=== PATIENT | female | born 1995 | race African-American/Black ===

== ENCOUNTER 2023-12-27 10:18 | Outpatient (AMB) | payer MEDICAID, SELFPAY ==
--- NOTE | 2023-12-27 10:33 | A.OFFVIS_ITS ---
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 Patient reports she was 14-15 years old when she first noticed this cyst on the dorsal aspect of her right wrist however in July is started giving her pain. She reports pain and weakness with lifting and pushing activities. She expresses she also has c ramping of all her fingers and she shakes her hand off or waits it out when this occurs. She was provided a topical cream for her pain but she says its not often when she does have pains, just when she pushing against things with her hand. Denies past treatment on her right wrist. 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 Patient states that her cyst has been there since she was 12 to 13 years old, but she noticed that it began giving her discomfort in July. Patient reports that since that time, she has been experiencing significant discomfort in the dorsal right wrist, as well as weakness with lifting or pushing activities. Patient reports that the cyst also has grown and shrunk in size over that time, and that it is now not currently as large as it was approximately 2-3 weeks ago. Patient denies any numbness or tingling in the right hand. No other acute complaints or concerns at this time. [facility] Social History (Updated 12/27/23 @ 10:37 by ESTRELLA Malave) Alcohol intake: never Substance Use Type: Marijuana Current occupational status: student Current occupation: Right hand dominant Review of Systems Const All systems reviewed & are unremarkable except as noted in HPI and below Physical Exam Vital Signs: BMI result Body Mass Index 39.5 Extrem Other: Patient is alert, oriented, and in no acute distress. Neuro: Normal sensation of the tips of all digits of the R hand at this time Vascular: Cap refill brisk Pain: Patient reports mild tenderness to palpation of the R wrist, about the ganglion cyst ROM: Patient is able to make a closed fist and extend all digits of the right hand without difficulty Range of motion of the right wrist is full and intact, although the patient reports discomfort with this range of motion testing Skin: No lacerations or abrasions. General: No ecchymosis, erythema, or evidence of infection. There is noted to be an area of swelling about the radial aspect of the dorsal right wrist, just next to the 1st dorsal compartment Area is fluctuant to palpation Psych: Appears grossly normal Affect normal Attitude cooperative Assessment & Plan Assessment & Plan (1) Ganglion cyst of dorsum of right wrist: Code(s): M67.431 - Ganglion, right wrist Category: Medical Plan 1. Dorsal wrist ganglion of right radial wrist Patient is educated about this condition Patient is educated about the treatment options available to her Patient is educated that, due to the location of the cyst near the 1st dorsal compartment and therefore near the radial artery, I am unable to aspirate the cyst in the office at this time due to the risk of injury to the radial artery Patient will be referred to Dr. Pettit for follow-up evaluation and discussion of treatment options indicated at that time In the meantime, patient is offered Coban to apply gentle compression to the ganglion cyst to encourage the fluid in the cyst returning into the wrist joint. Patient is amenable to this plan Patient will follow-up in 3-[address] Pettit for repeat evaluation, sooner with any acute concerns Coding Level of Care Code New Pt Level 3 (67920) Diagnoses Ganglion cyst of dorsum of right wrist M67.431
[2023-12-27 10:35] VITALS: BMI 39.5
== END 2023-12-27 11:05 | disposition home or self-care (01) ==
DX: M67.431 Ganglion, right wrist (principal)
CPT/HCPCS: 99203

== ENCOUNTER → 2023-12-27 10:18 | Outpatient (BNVA) | payer MEDICAID, SELFPAY | DX: M67.431 Ganglion, right wrist (principal) | CPT/HCPCS: 99212 ==

== ENCOUNTER 2024-01-21 09:32 | Outpatient (AMB) | payer MEDICAID, SELFPAY ==
--- NOTE | 2024-01-21 09:36 | A.OFFVIS_ITS ---
Vital Signs 01/21/24 09:38 Height 5 ft 6 in Weight 245 lb BMI 39.5 Handedness Right Intake Visit Reasons: OV- Right wrist ganglion cyst/ pain Intake Note: Macie is a 28 year old right hand dominant female who presents today for a right dorsal wrist ganglion cyst. During her initial visit patient reported she was 14-15 years old when she first noticed it however, it has been causing pain since July,. Patient reports pain and weakness with lifting and pushing activities. Patient report difficultly with gripping and squeezing when she has weakness. She reports her bilateral hands experience spasms in her 1st, 2nd, and 3rd digits. Denies any prior injuries or surgeries to the right hand. Allergies acetaminophen Allergy (Severe, Verified 01/21/24 09:38) Shortness of Breath aloe Allergy (Intermediate, Verified 01/21/24 09:38) Hives HPI HPI OV- Right wrist ganglion cyst/ pain: Details: Macie is a 28 year old right hand dominant woman who presents for a right dorsal wrist ganglion. She complains of a mass on the dorsal right wrist, which she says has been present since she was ~13. She says this has been causing her pain recently. She reports this mass changing in size several times over the years. She says it is smaller today than it was at her last appointment. She says she is hesitant to discuss surgery. She also complains of weakness in her wrist when gripping, lifting, or pushing activities. She denies any numbness or tingling. 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 [facility] Social History Alcohol intake: never Substance Use Type: Marijuana Current occupational status: student Current occupation: Right hand dominant Review of Systems Const All systems reviewed & are unremarkable except as noted in HPI and below Physical Exam Vital Signs: BMI result Body Mass Index 39.5 Const General: cooperative, healthy appearing and no acute distress Orientation/consciousness: patient oriented x3 HEENT Head: Yes normocephalic and Yes atraumatic Eyes EOM: EOMs intact bilaterally Resp Effort & Inspection: normal respiratory effort and able to speak in complete sentences Cardio Jugular venous distension: no JVD Skin General skin exam: turgor normal Rashes: no rashes Neuro General: patient oriented x3 Extrem Other: Evaluation of Right Upper Extremity: The patient is alert, oriented, and in no acute distress Neuro: Median, Ulnar, Radial nerves motor and sensory intact and sensation is normal to the tips of all digits Vascular: Cap refill brisk ROM: She can make a tight fist with good strength, and extend all her digits No locking or catching Good wrist ROM Skin: No lacerations or abrasions. General: No Ecchymosis. No Erythema or evidence of infection. There is a mass on the dorsal central aspect of the right wrist, over the capetate, measuring ~8mm in diameter. This is seen with her wrist in full flexion. Psych Appearance: grossly normal Affect: normal affect Attitude: cooperative Assessment & Plan Assessment & Plan (1) Ganglion cyst of dorsum of right wrist: Code(s): M67.431 - Ganglion, right wrist Category: Medical Plan Assessment & Plan: 1. Right dorsal wrist ganglion Measuring ~8mm in diameter, over the dorsal central aspect of the wrist, over the capitate Primarily seen in full wrist flexion. 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 She can follow up prn Scribed for Kaia Pettit MD by Azar Ramirez, medical coordinator pesticide use, on 01/21/24 at 10:10 AM, EST. Coding Level of Care Code Est Pt Level 3 (94751) Diagnoses Ganglion cyst of dorsum of right wrist M67.431
[2024-01-21 09:38] VITALS: BMI 39.5
== END 2024-01-21 10:12 | disposition home or self-care (01) ==
PROVIDERS: Visit Provider Orthopaedic Surgery
DX: M67.431 Ganglion, right wrist (principal)
CPT/HCPCS: 99213

== ENCOUNTER → 2024-01-21 09:32 | Outpatient (BNVA) | payer MEDICAID, SELFPAY | PROVIDERS: Visit Provider Orthopaedic Surgery | DX: M67.431 Ganglion, right wrist (principal); R53.1 Weakness | CPT/HCPCS: 99212 ==

== ENCOUNTER 2024-06-23 10:12 | Outpatient (REF) | payer MEDICAID, SELFPAY ==
[2024-06-23 11:14] LABS: MANUAL DIFF FLAG NO
[2024-06-23 11:32] LABS: Hematocrit 40.3 % (37.0-47.0); Imm Gran Pct Auto 0.1 % (0.0-0.4); Lymphocytes Percent Auto 36.7 % (20-40); Mean Corpuscular HGB Conc 34.7 g/dl (31.0-35.0); Mean Corpuscular Volume 86.3 fL (80.0-98.0); Mean Platelet Volume 10.7 fL (9.4-12.3); Monocytes Percent Auto 5.5 % (2-11); Neutrophils Percent Auto 55.3 % (45-73); Platelet Count 237 X10*3/uL (160-400); Red Blood Count 4.67 X10*6/uL (4.20-5.50); Red Cell Distribution Width 12.3 % (11.0-16.0); White Blood Count 6.9 X10*3/uL (4.8-10.8)
[2024-06-23 11:33] LABS: Basophils Absolute Auto 0.1 X10*3/uL (0.0-0.2); Basophils Percent Auto 0.7 % (0-2); Eosinophils Absolute Auto 0.1 X10*3/uL (0.0-0.4); Eosinophils Percent Auto 1.7 % (0-4); Imm Gran Abs Auto 0.01 X10*3/uL (0.00-0.03); Lymphocytes Absolute Auto 2.5 X10*3/uL (1.2-4.9); Monocytes Absolute Auto 0.4 X10*3/uL (0.1-1.2); Neutrophils Absolute Auto 3.8 x10*3/uL (2.0-8.3)
[2024-06-23 11:38] LABS: Estimated Average Glucose 97 mg/dL; Hemoglobin A1C 114.4178 umol/L; Total Hemoglobin (HGBA1C) 3651.7497 umol/L
[2024-06-23 12:00] LABS: HBS Num1 363.72 mIU/mL (0-7.99); HBsAGNum1 0.34 S/CO (0.00-0.99); HIV AB/AG Nonreactive (Nonreactive); HIV Num 1 0.08 S/CO (0.00-0.99); Hepatitis A Antibody IgM 0.18 Index (0-0.79); Hepatitis B Core Antibody Nonreactive (Nonreactive); Hepatitis B Surface Antigen Negative (Negative); Syphilis Screen Nonreactive (Nonreactive); ~Hepatitis A Antibody IgM Nonreactive (Nonreactive); ~Hepatitis B Surface Antibody REACTIVE (Nonreactive); ~Hepatitis C Antibody Nonreactive (Nonreactive)
[2024-06-23 12:06] LABS: Alanine Aminotransferase 20 U/L (0-31); Albumin Level 3.6 g/dL (3.5-5.0); Alkaline Phosphatase 111 U/L (39-117); Anion Gap 11 (12-20); Aspartate Amino Transferase 17 U/L (5-31); Bilirubin Total 0.3 mg/dL (0.0-1.0); Blood Urea Nitrogen 15 mg/dL (9-16); Calcium 8.8 mg/dL (8.4-10.2); Carbon Dioxide 22 mmol/L (22-29); Chloride 110 mmol/L (96-108); Cholesterol 128 mg/dL (<200); Estimated Glomerular Filt Rate > 60; Glucose Random 87 mg/dL (60-115); HDL Cholesterol 36 mg/dL (>40); LDL Cholesterol Calculated 77 mg/dL (<100); Potassium 4.3 mmol/L (3.3-5.1); Sodium 139 mmol/L (135-145); Total Protein 7.3 g/dL (6.5-8.0); Triglycerides 78 mg/dL (<150)
[2024-06-23 12:15] LABS: TSH reflex Free T4 1.15 uIU/mL (0.32-4.0); Vitamin D 25-OH Total 13.8 ng/mL (>30)
[2024-06-23 13:43] LABS: Reflex LDLD? No
== END 2024-06-23 10:13 | disposition home or self-care (01) ==
LOC: HO.HHCL 10:12
PROVIDERS: Visit Provider Internal Medicine
DX: Z11.4 Encounter for screening for human immunodeficiency virus [HIV] (principal); E66.812 Obesity, class 2; E66.09 Other obesity due to excess calories; Z68.37 Body mass index [BMI] 37.0-37.9, adult; S93.402A Sprain of unspecified ligament of left ankle, initial encounter; Z91.89 Other specified personal risk factors, not elsewhere classified
CPT/HCPCS: 36415; 80053; 80061; 82306; 83036; 84443; 85025; 86704; 86706; 86709; 86780; 86803; 87340; 87389

== ENCOUNTER 2024-07-13 11:36 | Outpatient (REF) | payer MEDICAID, SELFPAY ==
--- OUTSIDE RECORDS SUMMARY | 2024-07-14 14:15 | XMS_ITS | Encounter Summary ---
Author Organization [employer] Address [address] [place] [address] [address] [place] [address] Care Team Providers Care Fac Engineer Name Role Phone Tabitha Bateman MD Primary Care Provider + Reason for Visit * Reason Onset Date Comments Nurse Triage 07/13/2024 Encounter Details Date Type Department Care Team (Late st Contact Info) Description 07/13/2024 Telephone [facility] MED[facility]INE [address] [place] [address] Tabitha Bateman MD [address] [place], [place] [phone] Nurse Triage Social History Tobacco Use Types Packs/Day Years Used Date Smoking Tobacco: Never Smokeless Tobacco: Never Alcohol Use Standard Drinks/Week Comments Never 0 (1 standard drink = 0.6 oz pur e alcohol) Housing Stability Answer Date Recorded What is your housing situation today? I have alma underwood 06/23/[address] you li ve. Do you have problems with any of the following? None of the above 06/23/2024 Food Insecurity Answer Date Recorded Within the past 12 months, y ou worried that your food would run out before you got money to buy more: Never True 06/23/2024 Within the past 12 months,th e food you bought just didn't last and you didn't have enough money to get more: Never True Transportation Answer Date Recorded In the past 12 months, has l ack of transportation kept you from medical appts, meetings, work or from getting things needed for daily living? No 06/23/2024 Utilities Answer Date Recorded In the past 12 months, has t he electric, gas, oil or water company threatened to shut off services in your home? No 06/23/2024 Internet Access Answer Date Recorded Internet Access Q1 No 06/23/2024 Internet Access Q2 I do not want or need it 06/06 Comments No Sex and Gender Information Value Date Recorded Sex Assigned at Female 11/22/2023 12:12 PM EDT Legal Sex Female 12:10 PM EDT Gender Identity Female 11/22/2023 12:12 PM EDT Sexual Orientation Straight 11/22/2023 12 :12 PM EDT Occupation Industry Job Start Date Job End Date [employer] Not on file Not on file Not on fi le documented as of this encounter Miscellaneous Notes * Telephone Encounter - Enedelia Perez RN - 07/13/2024 12:23 PM EDT Call returned to Macie Bush to triage below. Reports having epigastric pain since Saturday. Per pt having lower abdominal pain since Saturday. Pt had loose stool on Saturday. NO urinary sx of pain , burning, or odor. No vaginal discharge. Vomiting x 1. Reports having vaginal spotting today. Per pt still has IUD in place. No regular monthly menses. Pt advised of disposition, agrees to seek WIC as currently at work until 4pm. Reviewed WIC operating hours and that wait times vary. Reviewed home care advise, ER precautions and reasons to call back. Protocol Used: Abdominal Pain - Female (Adult) Protocol-Based Disposition: See in Office or Video Visit Today Video visit offer not recorded Positive Triage Question: * Moderate pain (e.g., interferes with normal activities that comes and goes (cramps) lasts > 24hours (Exception: Pain with Vomiting or Diarrhea - see that Protocol.) * All higher-acuity triage questions were negative Care Advice Discussed: * Reassurance and Education - Mild Stomachache * Drink Clear Fluids * Reasons To Call Back - Severe pain lasts over 1 hour - You become worse * Telephone Encounter - Dottie Atkins - 07/13/2024 12:12 PM EDT Symptom: Abdominal Pain - Female - Status Unknown Outcome: Schedule an urgent appointment (within 4 hours) or talk to a nurse or provider soon Reason: Caller denied all higher acuity questions The caller accepted this outcome. Pt reported spotting Contact pt at [phone] documented in this encounter Plan of Treatment Upcoming Encounters Date Type Department Care Team ([facility] st Contact Info) Description 08/25/2024 11:45 AM EDT Telemedicine [facility] MEDICINE [address] [place] [address] [phone] Tabitha Bateman MD [address] [place] [phone] documented as of this encounter Visit Diagnoses Not on filedocumented in this encounter Care Teams Fac Engineer Relationship Specialty Start Date End Date Tabitha Bateman MD [address] [place] [address] [phone] PCP - General Internal Medicine 06/23/24 documented as of this encounter
--- OUTSIDE RECORDS SUMMARY | 2024-07-14 14:15 | XMS_ITS | Encounter Summary ---
Author Organization [employer] Address [address] [facility] [address] [place] [address] Care Team Providers Care Mica Sizer Name Role Phone Tabitha Bateman MD Primary Care Provider + Encounter Details Date Type Department Care Team (Latest Contact Info) Description 07/13/2024 Travel Social History Tobacco Use Types Packs/Day Years [...] fi le documented as of this encounter Plan of Treatment Upcoming Encounters Date Type Department Care Team (Late st Contact Info) Description 08/25/2024 11:45 AM EDT Telemedicine [facility] MEDICINE [address] [place], [place] [phone] Tabitha Bateman MD [address] [place] [phone] documented as of this encounter Visit Diagnoses Not on filedocumented in this encounter Care Teams Mica Sizer Relationship Specialty Start Date End Date Tabitha Bateman MD [address] [place] [address] [phone] PCP - General Internal Medicine 06/23/24 documented as of this encounter
--- OUTSIDE RECORDS SUMMARY | 2024-07-14 14:15 | XMS_ITS | Encounter Summary ---
Author Organization [employer] Address [address] [place] [address] [address] [place] [address] Care Team Providers Care Voip Technician Name Role Phone Tabitha Bateman MD Primary Care Provider + Reason for Referral * Imaging (Routine) - Authorized Specialty Diagnoses / Procedures Referred By Moe del castillo Referred To Contact Radiology Diagnoses Lower abdominal pain Procedures Us Pelvis complete Kiersten Beverly MD [address] [place] [address] Phone: tel: fax: [address] Phone: tel: fax: Referral ID Status Reason Start Date Expiration Date V isits Requested Visits Authorized [id number] Authorized 07/13/2024 07/13/2025 1 1 Reason for Visit * Reason Comments Abdominal Pain Encounter Details Date Type Department Care Team (Latest Contact Info) Description 07/13/2024 5:40 PM EDT Office Visit [facility] [address] [place] [phone] Kiersten Beverly MD [address] [place], [place] [phone] Gastroesophageal reflux disease without esophagitis (Primary Dx); Lower abdominal pain Social History Tobacco Use Types Packs/Day Years [...] fi le documented as of this encounter Last Filed Vital Signs Vital Sign Reading Time Taken Comments Blood Pressure 133/81 07/13/2024 5:20 PM EDT Pulse 73 07/13/2024 5:20 PM EDT Temperature 35.8 ??C (96.4 ??F) 07/13/2024 5:20 PM ED T Respiratory Rate 16 07/13/2024 5:20 PM EDT Oxygen Saturation 98% 07/13/2024 5:20 PM EDT Inhaled Oxygen Concentration - - Weight 109 kg (241 lb 3.2 oz) 07/13/2024 5:20 PM EDT Height 167.6 cm (5' 6 ) 07/13/2024 5:20 PM EDT Body Mass Index 38.93 07/13/2024 5:20 PM EDT documented in this encounter Progress Notes * Thevenin Beauzile, MD - 07/13/2024 5:40 PM EDT Subjective Patient ID: Macie Bush is a 28 y.o. female who presents for No chief complaint on file.. Abdominal Pain This is a new problem. The current episode started in the past 7 days. The onset quality is undetermined. The problem occurs constantly. The most recent episode lasted 4 days. The problem has been waxing and waning. The pain is located in the epigastric region and suprapubic region. The pain is at a severity of 6/10. The quality of the pain is cramping and a sensation of fullness. The abdominal pain radiates to the epigastric region and suprapubic region. Associated symptoms include anorexia, belching, constipation, diarrhea, flatus, myalgias, nausea and vomiting. Pertinent negatives include no arthralgias, dysuria, fever, frequency, headaches, hematochezia, hematuria, melena or weight loss. Nothing aggravates the pain. The pain is relieved by Nothing. There is no history of abdominal surgery, colon cancer, Crohn's disease, gallstones, GERD, irritable bowel syndrome, pancreatitis, PUD or ulcerative colitis. 3 days history of an epigastric pain associated with some nausea. Feels much better now during the evaluation. Main concern is her pelvic pain that started about 3 days ago associated with spotting. Patient hasa non hormonal IUD in place. No associated fever or other constitutional symptoms. Patient Active Problem List Diagnosis ASCUS with positive high risk HPV cervical Family history of breast cancer in first degree relative Gestational hypertension, third trimester History of latent tuberculosis Obesity, Class III, BMI 40-49.9 (morbid obesity) (CMS/HCC) Patellofemoral pain syndrome of right knee Rubella non-immune status, antepartum Class 2 obesity due to excess calories without serious comorbidity with body mass index (BMI) of 37.0 to 37.9 in adult Sprain of left ankle Decreased vision in both eyes At high risk for breast cancer Current Outpatient Medications on File Prior to Visit Medication Sig Dispense Refill ergocalciferol (Vitamin D2) 1.25 MG (69781 UT) capsule Take 1 capsule (1.25 mg) by mouth 1 (one) time per week. 12 capsule 1 Levonorgestrel 20 MCG/DAY intrauterine device 1 each by Intrauterine route 1 (one) time. No current facility-administered medications on file prior to visit. Review of Systems Constitutional: Negative for fever and weight loss. Gastrointestinal: Positive for abdominal pain, anorexia, constipation, diarrhea, flatus, nausea andvomiting. Negative for hematochezia and melena. Genitourinary: Negative for dysuria, frequency and hematuria. Musculoskeletal: Positive for myalgias. Negative for arthralgias. Neurological: Negative for headaches. Objective BP 133/81 (BP Location: Right arm, Patient Position: Sitting, BP Cuff Size: Large adult) Pulse 73 Temp 96.4 ??F (35.8 ??C) (Temporal) Resp 16 Ht 5' 6 (1.676 m) Wt 241 lb 3.2 oz (109 kg) LMP (LMP Unknown) SpO2 98% BMI 38.93 kg/m?? Physical Exam Constitutional: General: She is not in acute distress. Appearance: Normal appearance. She is obese. She is not ill-appearing, toxic- appearing or diaphoretic. Cardiovascular: Rate and Rhythm: Normal rate. Pulmonary: Effort: Pulmonary effort is normal. Abdominal: General: There is no distension. Palpations: Abdomen is soft. There is no mass. Tenderness: There is no abdominal tenderness. Hernia: No hernia is present. Neurological: Mental Status: She is alert. Psychiatric: Mood and Affect: Mood normal. Assessment/Plan Diagnoses and all orders for this visit: Gastroesophageal reflux disease without esophagitis Comments: Avoid dietary irritants Avoid eating 3 hours prior to bedtime Head of bed elevation. Orders: - omeprazole OTC (PriLOSEC OTC) 20 MG EC tablet; Take 1 tablet (20 mg) by mouth 2 times daily. Do not crush, chew, or split. Lower abdominal pain Comments: UA compatible with dehydration Patient advised to increase fluid intake. She only drinks maybe 16 ounces of water a day. Orders: - POCT urinalysis dipstick manually resulted - POCT , urine manually resulted - Culture, Urine, Routine; Future Ms Macie Bush will be contacted with the results of the urine culture and the result of the ultrasound of the pelvic area. - Us Pelvis complete; Future documented in this encounter Plan of Treatment Upcoming Encounters Date Type Department Care Team (Late st Contact Info) Description 08/25/2024 11:45 AM EDT Telemedicine [facility] [address] [place] [address] Tabitha Bateman MD [address] [place] [address] Scheduled Orders Name Type Priority Associated Diagnoses Orde r Schedule Culture, Urine, Routine Microbiology Routine Lower abdominal pain Expected: 07/13/2024 (Approximate), Expires: 07/13/2025 Us Pelvis complete Imaging Routine Lower abdominal pain Expected: 07/13/2024, Expires: 07/13/2025 documented as of this encounter Procedures Procedure Name Priority Date/Time Associated Diagnosis Comments POCT , URINE Routine 07/13/2024 5:51 PM EDT Lower abdominal pain POCT URINALYSIS DIPSTICK Routine 07/13/2024 5:51 PM EDT Lower abdominal pain documented in this encounter Results * POCT , urine manually resulted (07/13/2024 5:51 PM EDT) Preg Test, Ur Negative Negative, Indeterminate, None Detected, Invalid, Specimen unsatisfactory for evaluation, Weakly Positive QC Media Lot # [id number] Lot# Expiration Date [id number] Urine 07/13/2024 5:51 PM EDT Kiersten Beverly MD POINT OF CARE TEST ENTER/ED IT ORDERABLES Final Result * (ABNORMAL) POCT urinalysis dipstick manually resulted (07/13/2024 5:51 PM EDT) Color, UA Dark Cynthia Clarity, UA Clear Glucose, UA Negative Bilirubin, UA Trace Comment:small Ketones, UA Negative Spec Grav, UA 1.030 Blood, UA Positive(A) Negative, None Detected Comment:trace-intact pH, UA 6.0 Protein, UA Many Comment:30mg/dL Urobilinogen, UA 1.0 Leukocytes, UA Negative Negative, Rare, Trace Nitrite, UA Negative Negative, None Detected Appearance, UA dark QC Media Lot # [id number] Lot# Expiration Date [id number] Urine 07/13/2024 5:51 PM EDT Kiersten Beverly MD POINT OF CARE TEST ENTER/ED IT ORDERABLES Final Result documented in this encounter Visit Diagnoses Diagnosis Gastroesophageal reflux disease without esophagitis- Primary Esophageal reflux Lower abdominal pain Abdominal pain, other specified site documented in this encounter Care Teams Voip Technician Relationship Specialty Start Date End Date Tabitha Bateman MD [address] [place] [phone] PCP - General Internal Medicine 06/23/24 documented as of this encounter
--- OUTSIDE RECORDS SUMMARY | 2024-07-14 14:15 | XMS_ITS | Encounter Summary ---
Author Organization [employer] Address [address] [place] [address] [address] [place] [address] Care Team Providers Care Heavy Threader Name Role Phone Tabitha Bateman MD Primary Care Provider + Reason for Visit * Reason Onset Date Comments Durable Medical Equipment 07/10/2024 Encounter Details Date Type Department Care Team (Late st Contact Info) Description 07/10/2024 Telephone [facility] MEDICINE [address] [place], [place] [phone] Tabtiha Bateman MD [address] [place], [place] [phone] Durable Medical Equipment Social History Tobacco Use Types Packs/Day Years [...] encounter Miscellaneous Notes * Telephone Encounter - Bonnie Hogan MA - 07/10/2024 1:31 PM EDT Script for left ankle brace submitted through [employer] for processing. Supplier should contact patient. documented in this encounter Plan of Treatment Upcoming Encounters Date Type Department Care Team (Late st Contact Info) Description 08/25/2024 11:45 AM EDT Telemedicine [facility] MEDICINE [address] [place] [phone] Tabitha Bateman MD [address] [place] [phone] documented as of this encounter Visit Diagnoses Not on filedocumented in this encounter Care Teams Heavy Threader Relationship Specialty Start Date End Date Tabitha Bateman MD [address] [place] [phone] PCP - General Internal Medicine 06/23/24 documented as of this encounter
--- OUTSIDE RECORDS SUMMARY | 2024-07-14 14:15 | XMS_ITS | Clinical Summary ---
Author Organization [facility] ity Address [address] [place] [address] Care Team Providers Care Rivet Sticker Name Role Phone Audrey Magallon MD Primary Care Provider Allergies Active Allergy Reactions Criticality Noted Date Comments Acetaminophen Hives High 06/16/2019 Aloe Hives 09/25/2019 Medications levonorgestreL (MIRENA) 21 mcg/24hr (up to 8 yrs) 52 mg IUD 1 each by Intrauterine route once. Active Active Problems Problem Noted Date Diagnosed Date Patellofemoral pain syndrome of right knee 05/16 Gestational hypertension, third trimester 2019 Rubella non-immune status, antepartum 01/23/2020 Chest pain, atypical 10/21/2019 Overview (06/03/2024): CBC and CMP 09/23 WNL. Magnesium level 1.7 - borderline low. Mag supplement recommended, taking daily. S/p cardiology consult with Dr. Martinez - EKG, FRANKIE, 30 day loop recorder ordered. Due to follow up 11/09. Reviewed s/sx that warrant immediate eval Obesity, Class III, BMI 40-49.9 (morbid obesity) 10/21/2019 Overview (06/03/2024): BMI 40.03 kg/m, will need NSTs weekly at 32 weeks, patient informed/agreeable ASCUS with positive high risk HPV cervical 06/25 Overview (06/03/2024): Neg 16,18,45 Immunizations Name Administration Dates Next Due Influenza Quadravalent, MDCK , 0.5ml, preservative free (Flucelvax) 6mo and older 01/05/2020 MMR, measles mumps and rubel la Live (Priorix; M-M-R II) 12mo and older 01/25/2020 Moderna SARS-CoV-2 COVID-19, mRNA, LNP-S, preservative free 04/11/2021,08/30/2020,08/04/2020 Surgical History Surgery Date Site/Laterality Comments DILATION AND CURETTAGE OF UTERUS PROCEDURE:DILATION AND CURETTAGE OF UTERUS;COMMENT:partial molar WISDOM TOOTH EXTRACTION PROCEDURE:WISDOM TOOTH EXTRACTION Medical History Medical History Date Comments Depression DX:Depression Psychiatric disorder DX:Psychiat denise disorder Migraine DX:Migraine ASCUS with positive high ris k HPV cervical 06/26/2019 DX:ASCUS with positive high risk HPV cervical Molar DX:Molar pregnan cy Anxiety DX:Anxiety Low back pain DX:Low back pain Obesity DX:Obesity Tuberculosis DX:Tuberculosis Gestational hypertension, th ird trimester 01/23/2020 DX:Gestational hypertension, third trimester Family History Medical History Relation Name Comments Anxiety disorder Brother Depression Brother Alcohol abuse Father Hyperlipidemia Father Hypertension Father Breast cancer Great Aunt maternal Alcohol abuse Mother Anxiety disorder Mother Breast cancer Mother Depression Mother Diabetes Mother Hypertension Mother Anxiety disorder Sister 1 Depression Sister 1 Anxiety disorder Sister 2 Depression Sister 2 Relation Name Status Comments Brother Alive Father Alive Great Aunt maternal Alive Mother Sister 1 Alive Sister 2 Alive Social History Tobacco Use Types Packs/Day Years Used Date Smoking Tobacco: Never Smokeless Tobacco: Never Alcohol Use Standard Drinks/Week Comments Yes 0 (1 standard drink = 0.6 oz pur e alcohol) Comments Unknown Sex and Gender Information Value Date Recorded Sex Assigned at Not on file Legal Sex Female 3:20 AM EST Gender Identity Not on file Sexual Orientation Not on file Obstetrics History Last Filed Vital Signs Vital Sign Reading Time Taken Comments Blood Pressure 128/84 06/08/2021 10:02 AM EST Sitting Right arm Pulse 72 06/08/2021 10:02 AM EST Temperature - - Respiratory Rate - - Oxygen Saturation - - Inhaled Oxygen Concentration - - Weight 129 kg (284 lb) 06/08/2021 10:02 AM EST Height 167.6 cm (5' 6 ) 06/08/2021 10:0 2 AM EST Body Mass Index 45.84 06/08/2021 10:02 AM EST Plan of Treatment Health Maintenance Due Date Last Done Comments DTaP,Tdap,and Td Vaccines (1 - Tdap) 2012 Hepatitis B Vaccines (1 of 3 - 19+ 3-dose series) 2012 Depression Screening 03/11/2022 Social Influencers of Health Screening 03/11/2022 Hypertension/CHF/CAD Annual BMP Blood Test 06/08/2022 06/08/2021, 06/08/2021, 01/28/2021, Additional history exists COVID-19 Vaccine ( season) 2023 04/11/2021, 08/30/2020, 08/04/2020 Influenza Vaccine (Season Ended) 2024 01/05/2020 Cervical Cancer Screening: HPV 03/25/2025 03/25/2020 Cholesterol Screening (Lipid Panel) 06/08/2026 06/08/2021, 06/08/2021 Hepatitis C Screening Completed 06/30/2019 HIV Screening Completed 10/26/2019 MMR Vaccines Aged Out 01/25/2020 No longer eligi ble based on patient's age to complete this topic HIB Vaccines Aged Out No longer eligi ble based on patient's age to complete this topic HPV Vaccines Aged Out No longer eligi ble based on patient's age to complete this topic Hepatitis A Vaccines Aged Out No long er eligible based on patient's age to complete this topic IPV Vaccines Aged Out No longer eligi ble based on patient's age to complete this topic Meningococcal ACWY Vaccine Aged Out N o longer eligible based on patient's age to complete this topic Meningococcal B Vaccine Aged Out No l onger eligible based on patient's age to complete this topic Pneumococcal Vaccine: Pediatrics (0 to 5 Years) and At-Risk Patients (6 to 64 Years) Aged Out No longer eligible based on patient's age to complete this topic RSV Immunization Patients Under 20 months Aged Out No longer eligible based on patient's age to complete this topic Varicella Vaccines Aged Out No longer eligible based on patient's age to complete this topic Procedures Procedure Name Priority Date/Time Associated Diagnosis Comments ANNUAL BMP BLOOD TEST Routine 06/08/2021 LIPID PANEL Routine 06/08/2021 HPV Routine 03/25/2020 HIV SCREENING Routine 10/26/2019 HEPATITIS C SCREENING Routine 06/30/2019 from Last 3 Months or Most Recently Relevant to Health Maintenance Results * Annual BMP Blood Test (06/08/2021) Pathologist [facility] Annual BMP Blood Test Abstracted [facility] Provider HEALTH MAINTENANCE Final Result * (ABNORMAL) Lipid panel (06/08/2021) [facility] Triglycerides 208(A) <=150 mg/dL Cholesterol 123 0 - 200 mg/dL HDL 28(A) 35 - 80 mg/dL LDL Cholesterol 53 50 - 130 mg/dL Blood Venous blood specimen / Unknown [facility] Provider LAB BLOOD ORDERABLES Purvi l Result * Cervical Cancer Screening: HPV (03/25/2020) [facility] Cervical Cancer Screening: HPV Negative, Abstracted [facility] Provider HEALTH MAINTENANCE Final Result * HIV Screening (10/26/2019) [facility] HIV Screening Abstracted [facility] Provider HEALTH MAINTENANCE Final Result * Hepatitis C Screening (06/30/2019) [facility] Hepatitis C Screening Abstracted [facility] Provider HEALTH MAINTENANCE Final Result from Last 3 Months or Most Recently Relevant to Health Maintenance Care Teams Rivet Sticker Relationship Specialty Start Date End Date Audrey Magallon MD [address] [place] [address] PCP - General Internal Medicine 05/09/21
--- OUTSIDE RECORDS SUMMARY | 2024-07-14 14:15 | XMS_ITS | Clinical Summary ---
Author Organization [facility] Address [address] [place] [address] Care Team Providers Care Heel Gummer Name Role Phone Audrey Magallon MD Primary Care Provider Unav ailable Allergies Active Allergy Reactions Criticality Noted Date Comments Aloe Hives 09/25/2019 Acetaminophen Hives High 06/16/2019 Medications Medication Sig Dispensed Refills Start Date End Date Status levonorgestrel (Mirena, 52 MG,) 20 MCG/24HR IUD 1 each by Intrauterine route once. 0 Active Active Problems Problem Noted Date Diagnosed Date Patellofemoral pain syndrome of right knee 05/16 Gestational hypertension, third trimester 2019 Rubella non-immune status, antepartum 01/23/2020 Obesity, Class III, BMI 40-49.9 (morbid obesity) 10/21/2019 Overview: BMI 40.03 kg/m, will need NSTs weekly at 32 weeks, patient informed/agreeable Chest pain, atypical 10/21/2019 Overview: CBC and CMP 09/23 WNL. Magnesium level 1.7 - borderline low. Mag supplement recommended, taking daily. S/p cardiology consult with Dr. Martinez - EKG, FRANKIE, 30 day loop recorder ordered. Due to follow up 11/09. Reviewed s/sx that warrant immediate eval Family history of breast cancer in first degree relative 10/21/2019 Overview: mother dx in ealry 30s, GM and maternal great aunt in early 50s, unsure if genetic testing done. Consider referral to genetics and further discussion about screening mammos PP per previous d/w Dr. Garcia History of latent tuberculosis 10/21/2019 ASCUS with positive high risk HPV cervical 06/25 Overview: Neg 16,18,45 Resolved Problems Problem Noted Date Diagnosed Date Resolved Date Third trimester 01/22/2020 Decreased movements in second trimester 11/22/19 20 01/23/2020 Asthma affecting i n second trimester 10/21/2019 02/12/2020 Immunizations Name Administration Dates Next Due Covid-19 (Moderna 12+) 100mcg/0.5mL dosage 04/11,08/30/2020,08/04/2020 Influenza Quad (Flucelvax) 0 .5mL >6mon (ccIIV4) 01/05/2020 MMR 01/25/2020 Family History Medical History Relation Name Comments [...] drink = 0.6 oz pur e alcohol) socially Sex and Gender Information Value Date Recorded Sex Assigned at Female 06/16/2019 3:27 PM EDT Gender Identity Female 06/16/2019 3:27 PM EDT Sexual Orientation Straight 01/14/2020 8: 38 AM EDT Job Start Date Occupation Industry Not on file Not on file Not on file Last Filed Vital Signs Vital Sign Reading Time Taken Comments Blood Pressure 128/84 06/08/2021 10:02 AM EST Pulse 72 06/08/2021 10:02 AM EST Temperature 36.6 ??C (97.9 ??F) 06/08/2021 10:[address] Respiratory Rate 18 01/28/2021 5:23 PM EDT Oxygen Saturation 98% 06/08/2021 10:02 AM EST Inhaled Oxygen Concentration - - Weight 128.8 kg (284 lb) 06/08/2021 10:02 AM EST Height 167.6 cm (5' 6 ) 06/08/2021 10:02 AM EST Body Mass Index 45.84 06/08/2021 10:02 AM EST Plan of Treatment Health Maintenance Due Date Last Done Comments Hepatitis B Vaccines (1 of 3 - 3-dose series) 1993 Pneumococcal Vaccine (1 of 2 - PCV) 10/28/1999 DTap / Tdap / Td (1 - Tdap) 2012 Depression Screening 05/09/2022 05/09/2021 BMI Counseling 06/08/2022 06/08/2021, 11/2021, 05/09/2021, Additional history exists Preventative Health Evaluation 06/08/2022 06/08/2021, 06/16/2019 Cervical Cancer Screening (Pap Smear) 03/11/2023 03/11/2020, 06/16/2019 COVID-19 Vaccine ( season) 2023 04/11/2021, 08/30/2020, 08/04/2020 Influenza Vaccine (#1) 2023 01/05/2020 Hepatitis C Screening Completed 06/30/2019 RSV Ped < 20 months Aged Out No longe r eligible based on patient's age to complete this topic Advance Directives For more information, please contact: [phone] Latest Code Status on File Code Status Date Activated Date Inactivated Comments Full Code 01/22/2020 2:46 PM 01/25/2020 10:10 PM Th is code status was ascertained in the following way: discussion with patient . Care Teams Heel Gummer Relationship Specialty Start Date End Date Audrey Magallon MD PCP - General Internal Medicine 05/09/21
--- OUTSIDE RECORDS SUMMARY | 2024-07-14 14:15 | XMS_ITS | Clinical Summary ---
Author Organization [facility] Address [address] [place] [address] 7[address] [place] [address] Care Team Providers Care Manufacturing Advisor Name Role Phone Tabitha Bateman MD Primary Care Provider + Allergies Active Allergy Reactions Criticality Noted Date Comments Acetaminophen Hives High 06/16/2019 Aloe Hives 09/25/2019 Medications Levonorgestrel 20 MCG/DAY intrauterine device 1 each by Intrauterine route 1 (one) time. Active ergocalciferol (Vitamin D2) 1.25 MG (74543 UT) capsule Take 1 capsule (1.25 mg) by mouth 1 (one) time per week. 12 capsule 1 06/24/19 25 025 Active omeprazole OTC (PriLOSEC OTC) 20 MG EC tabletIndication s:Gastroesophage al reflux disease without esophagitis Take 1 tablet (20 mg) by mouth 2 times daily. Do not crush, chew, or split. 30 tablet 1 07/14/19 25 026 Active valACYclovir (Valtrex) 1 g tablet Take 1,000 mg by mouth 2 times daily. 04/17/19 24 025 Discontin ued(Thera py completed ) Diclofenac Sodium 1 % gelIndications:G anglion cyst of dorsum of right wrist Apply topically to affected areas twice daily 150 g 1 11/22/19 24 025 Discontin ued(Thera py completed ) Active Problems Problem Noted Date Diagnosed Date Class 2 obesity due to exces s calories without serious comorbidity with body mass index (BMI) of 37.0 to 37.9 in adult 06/23/2024 Sprain of left ankle 06/23/2024 Assessment & Plan (06/23/2024 12:56 PM EDT): Advised to wear ankle brace and fu in 4 weeks. Decreased vision in both eyes 06/23/2024 Assessment & Plan (06/23/2024 12:56 PM EDT): Refer to eye doctor. At high risk for breast cancer 06/23/2024 Assessment & Plan (06/23/2024 1:17 PM EDT): Order mammogram Patellofemoral pain syndrome of right knee 05/16 Gestational hypertension, third trimester 2019 Rubella non-immune status, antepartum 01/23/2020 Family history of breast cancer in first degree relative 10/21/2019 Overview (11/22/2023): mother dx in ealry 30s, GM and maternal great aunt in early 50s, unsure if genetic testing done. Consider referral to genetics and further discussion about screening mammos PP per previous d/w Dr. Garcia Assessment & Plan (06/23/2024 12:55 PM EDT): Will order mammogram today. History of latent tuberculosis 10/21/2019 Assessment & Plan (06/23/2024 12:55 PM EDT): Will order chest XR prn. Obesity, Class III, BMI 40-49.9 (morbid obesity) 10/21/2019 Overview (11/22/2023): BMI 40.03 kg/m, will need NSTs weekly at 32 weeks, patient informed/agreeable ASCUS with positive high risk HPV cervical 06/25 Overview (11/22/2023): Neg 16,18,45 Assessment & Plan (06/23/2024 12:55 PM EDT): Will obtain pap smear from tapestry and fu at next visit. Encounters Date Type Department Care Team Description 07/13/2024 5:40 PM EDT Office Visit [facility] [address] [place] [phone] Kiersten Beverly MD Gastroesophageal reflux disease without esophagitis (Primary Dx); Lower abdominal pain 07/13/2024 Travel 07/13/[address] [phone] Tabitha Bateman MD Nurse Triage 07/10/[address] [address] Tabitha Bateman MD Durable Medical Equipment 06/30/[address] [phone] Tabtiha Bateman MD Durable Medical Equipment 06/23/2024 9:15 AM EDT Office Visit [address] [phone] Tabitha Bateman MD Class 2 obesity due to excess calories without serious comorbidity with body mass index (BMI) of 37.0 to 37.9 in adult (Primary Dx); At high risk for breast cancer; Sprain of left ankle, unspecified ligament, initial encounter; ASCUS with positive high risk HPV cervical; History of latent tuberculosis; Family history of breast cancer in first degree relative; Decreased vision in both eyes; Obesity, Class III, BMI 40-49.9 (morbid obesity) (CMS/[facility]); Dietary counseling; Exercise counseling 06/23/2024 Travel 06/19/2024 Population Health Risk [facility] () Department [address] [place] [phone] Provider, Population Health Generic 06/16/2024 Patient Outreach [address] [address] Tabitha Bateman MD Pre-visit Planning ((Unable to reach for PVP screening, LVM)) from Last 3 Months Immunizations Name Administration Dates Next Due Influenza Injectable Quadriv alant Preservative Free IIV4 MDCK 01/05/2020 Influenza, seasonal, injecta ble, preservative free 03/16/2024 MMR 01/25/2020 Moderna Covid-19 Vaccine 12+ 04/11/2021,08/31/19 21,08/04/2020 Tdap 03/16/2024 Family History Medical History Relation Name Comments Breast cancer Maternal Grandmother Breast cancer Mother Hyperthyroidism Sister Relation Name Status Comments Maternal Grandmother Mother Sister Social History Tobacco Use Types Packs/Day Years Used Date Smoking Tobacco: Never Smokeless Tobacco: Never Tobacco Cessation:Counseling Given: Not Answered Alcohol Use Standard Drinks/Week Comments Never 0 (1 standard drink = 0.6 oz pur e alcohol) Housing Stability Answer Date Recorded What is your housing situation today? I have alma yasmine 06/23/[address] you li [...] Not on file Not on fi le Last Filed Vital Signs Vital Sign Reading [...] Mass Index 38.93 07/13/2024 5:20 PM EDT Plan of Treatment Upcoming Encounters Date Type Department Care Team (Late st Contact Info) Description 08/25/2024 11:45 AM EDT Telemedicine [facility] [address] [place] [address] Tabitha Bateman MD [address] [place], [place] [phone] Health Maintenance Due Date Last Done Comments Depression Screening 1993 Alcohol/Substance Use Screening 2005 Family Planning (PISQ) 2008 Hepatitis B Vaccines (1 of 3 - 19+ 3-dose series) 2012 Pneumococcal Vaccine: Pediatrics (0 to 5 Years) and At-Risk Patients (6 to 49) Years) (1 of 2 - PCV) 2012 Pap Smear 2014 Cervical Cancer Screening 10/28/2023 HPV/Cotest 10/28/2023 COVID-19 Vaccine (4 - 2023-2 5 season) 2023 04/11/2021, 08/30/2020, 08/04/2020 SDOH Screening 06/23/2025 06/23/2024 Tobacco Screening 07/13/2025 07/13/2024 Lipid Panel 06/23/2029 06/23/2024 DTaP/Tdap/Td Vaccines (2 - T d or Tdap) 03/16/2034 03/16/2024 Zoster Vaccines (1 of 2) 10/28/2043 RSV Patients and Patients Aged 60 years or older (1 - 1-dose 75+ series) 2068 Influenza Vaccine Completed 03/16/2024, 01/05/2020 HIV Screening Completed 06/23/2024 Hepatitis C Screening Completed 06/23/2024 HIB Vaccines Aged Out No longer eligi [...] patient's age to complete this topic Meningococcal Vaccine Aged Out No don lilli eligible based on patient's age to complete this topic RSV under 20 months Aged Out No longe r eligible based on patient's age to complete this topic Rotavirus Vaccines Aged Out No longer eligible based on patient's age to complete this topic Procedures Procedure Name Priority Date/Time Associated Diagnosis Comments POCT , URINE Routine 07/13/2024 5:51 PM EDT Lower abdominal pain POCT URINALYSIS DIPSTICK Routine 07/13/2024 5:51 PM EDT Lower abdominal pain HEMOGLOBIN A1C Routine 06/23/2024 10:14 AM EDT Class 2 obesity due to excess calories without serious comorbidity with body mass index (BMI) of 37.0 to 37.9 in adult HEPATITIS PANEL, GENERAL Routine 06/23/2024 10:14 AM EDT Class 2 obesity due to excess calories without serious comorbidity with body mass index (BMI) of 37.0 to 37.9 in adult HIV 1/2 ANTIGEN/ANTIBODY, FOURTH GENERATION W/RFL Routine 06/23/2024 10:14 AM EDT At high risk for breast cancer SYPHILIS SCREEN Routine 06/23/2024 10:14 AM EDT Class 2 obesity due to excess calories without serious comorbidity with body mass index (BMI) of 37.0 to 37.9 in adult CBC WITH AUTO DIFFERENTIAL Routine 06/23/2024 10:14 AM EDT Sprain of left ankle, unspecified ligament, initial encounter LIPID PANEL WITH REFLEX TO DIRECT LDL Routine 06/23/2024 10:14 AM EDT Class 2 obesity due to excess calories without serious comorbidity with body mass index (BMI) of 37.0 to 37.9 in adult VITAMIN D,25-OH,TOTAL,IA Routine 06/23/2024 10:14 AM EDT Sprain of left ankle, unspecified ligament, initial encounter Class 2 obesity due to excess calories without serious comorbidity with body mass index (BMI) of 37.0 to 37.9 in adult TSH W/REFLEX TO FT4 Routine 06/23/2024 1 0:14 AM EDT Class 2 obesity due to excess calories without serious comorbidity with body mass index (BMI) of 37.0 to 37.9 in adult COMPREHENSIVE METABOLIC PANEL Routine 06/23/2024 10:14 AM EDT Class 2 obesity due to excess calories without serious comorbidity with body mass index (BMI) of 37.0 to 37.9 in adult from Last 3 Months Results * POCT , urine manually resulted (07/13/2024 5:51 PM EDT) Preg Test, Ur Negative Negative, Indeterminate, None Detected, Invalid, Specimen unsatisfactory for evaluation, Weakly Positive QC Media Lot # [id number] Lot# Expiration Date ,505 Urine 07/13/2024 5:51 PM EDT Kiersten Beverly [...] Media Lot # [id number] Lot# Expiration Date [id number] Urine 07/13/2024 5:51 PM EDT us Kiersten Beverly MD POINT OF CARE TEST ENTER/ED IT ORDERABLES Final Result * Syphilis Screen (06/23/2024 10:14 AM EDT) Syphilis Screen Nonreactive Nonreactive [facility] Blood 06/23/2024 10:1 4 AM EDT 06/23/2024 11:09 AM EDT Tabitha Bateman MD LAB BLOOD ORDERABLES Fin al Result [facility] [address] [place] [phone] * (ABNORMAL) Vitamin D, 25-Hydroxy, Total, Immunoassay (06/23/2024 10:14 AM EDT) Vitamin D 25-OH Total 13.8(L) >30 ng/mL [facility] Comment: Health Based Reference Values*< 20 ??ng/mL ??Reydzwads85-96 ng/mL ??Insufficient> 30 ??ng/mL ??Sufficient*Linda BETHEA. N Engl J Med. 2007;357:266-280There is no well-established upper level of normal vitamin Dlevels. Some laboratories use 50 ng/mL as an upper limit ofnormal. However, toxicity is patient-dependent and may occurat any level. Careful correlation with the patient'spresentation is necessary and, if there is concern forvitamin D toxicity, treatment should be consideredirrespective of the serum level.Care must be taken in interpreting Vitamin D results fromdifferent laboratories and methodologies. ??Published datademonstrated that results from patients undergoinghemodialysis may show a negative bias when tested withvarious automated 25-OH vitamin D assays when compared toLC- MS/MS.When testing samples from patients whose predominant form ofVitamin D is Vitamin D2, such as patients receiving VitaminD2 supplementation, results that are subtherapeutic shouldbe confirmed with another method such as LC-MS/MS. Blood 06/23/2024 10:1 4 AM EDT 06/23/2024 11:09 AM EDT Tabitha Bateman MD LAB BLOOD ORDERABLES Fin al Result Performing Organization Address City/[facility]/ZIP Co de Phone Number [facility] [address] [place] [phone] * TSH with Reflex to Free T4 (06/23/2024 10:14 AM EDT) TSH reflex Free T4 1.15 0.32 - 4.0 uIU/mL [facility] Blood 06/23/2024 10:1 4 AM EDT 06/23/2024 11:09 AM EDT us Tabitha Bateman MD LAB BLOOD ORDERABLES Fin al Result Performing Organization Address [facility] Co de Phone Number [facility] [address] [place] [phone] * (ABNORMAL) Lipid Panel with Reflex to Direct LDL (06/23/2024 10:14 AM EDT) Triglycerides 78 <150 mg/dL [facility] Comment:Desirable Triglyceri de: less than 150 mg/dLBorderline High Triglyceride 150-199 mg/dLHigh Triglyceride: 200-499 mg/dLVery High Triglyceride: greater than or equal to 5OO mg/dL Cholesterol 128 <200 mg/dL [facility] Comment:Desirable Cholestero l: less than 200 mg/dLBorderline High Cholesterol: 200-239 mg/dLHigh Cholesterol: greater than 239 mg/dL LDL Cholesterol Calculated 77 <100 mg/dL [facility] Comment:Desirable LDL: less than 100 mg/dLNear Optimal/Above Optimal LDL: 110- 129 mg/dLBorderline High LDL: 130-159 mg/dLHigh LDL: 160-189 mg/dLVery High LDL: greater than or equal to 190 mg/dL HDL Cholesterol 36(L) >40 mg/dL [facility] Comment:Desirable HDL: great er than 40 mg/dL Note: This HDL assay may give artificially low results in patients with liver disease. Blood 06/23/2024 10:1 4 AM EDT 06/23/2024 11:09 AM EDT Tabitha Bateman MD LAB BLOOD ORDERABLES Fin al Result [facility] [address] [place] [address] [phone] * Hepatitis Panel, General (06/23/2024 10:14 AM EDT) Hepatitis A IgM Nonreactive Nonreactive [facility] Comment:IgM antibodies to LEON V not detected; does not exclude earlyacute or recovered HAV infection. ~Hepatitis B Surface Antibody REACTIVE Nonreactive [facility] Comment:REACTIVE: > 11.99 mI U/mL Hepatitis B Core Antibody Nonreactive Nonreactive [facility] Hepatitis C Antibody Nonreactive Nonreactive [facility] Comment:Antibodies to HCV no t detected; does not exclude early acuteHCV infection. Hepatitis B Surface Ag Negative Negative [facility] Blood 06/23/2024 10:1 4 AM EDT 06/23/2024 11:09 AM EDT Tabitha Bateman MD LAB BLOOD ORDERABLES Fin al Result Performing Organization Address [facility]/ZIP Co de Phone Number [facility] [address] [place] [phone] * CBC auto differential (06/23/2024 10:14 AM EDT) White Blood Count 6.9 4.8 - 10.8 X10*3/uL [facility] Red Blood Count 4.67 4.20 - 5.50 X10*6/uL [facility] Hemoglobin 14.0 12.0 - 16.0 g/dl [facility] Hematocrit 40.3 37.0 - 47.0 % [facility] Mean Corpuscular Volume 86.3 80.0 - 98.0 fL [facility] Mean Corpuscular Hemoglobin 30.0 27.0 - 33.0 pg [facility] Mean Corpuscular HGB Conc 34.7 31.0 - 35.0 g/dl [facility] Red Cell Distribution Width 12.3 11.0 - 16.0 % [facility] Platelet Count 237 160 - 400 X10*3/uL [facility] Mean Platelet Volume 10.7 9.4 - 12.3 fL [facility] Neutrophils Percent Auto 55.3 45 - 73 % [facility] Imm Gran Pct Auto 0.1 0.0 - 0.4 % [facility] Lymphocytes Percent Auto 36.7 20 - 40 % [facility] Monocytes Percent Auto 5.5 2 - 11 % [facility] Eosinophils Percent Auto 1.7 0 - 4 % [facility] Basophils Percent Auto 0.7 0 - 2 % [facility] NRBC Pct Auto 0.0 0.0 - 0.2 /100WBC [facility] Neutrophils Absolute Auto 3.8 2.0 - 8.3 x10*3/uL [facility] Imm Gran Abs Auto 0.01 0.00 - 0.03 X10*3/uL [facility] Lymphocytes Absolute Auto 2.5 1.2 - 4.9 X10*3/uL [facility] Monocytes Absolute Auto 0.4 0.1 - 1.2 X10*3/uL [facility] Eosinophils Absolute Auto 0.1 0.0 - 0.4 X10*3/uL [facility] Basophils Absolute Auto 0.1 0.0 - 0.2 X10*3/uL [facility] NRBC Abs Auto 0.000 0.0 - 0.012 X10*3/uL [facility] Blood Venous blood specimen / Unknown 06/23/2024 10:14 AM EDT 06/23/2024 11:09 AM EDT Tabitha Bateman MD LAB BLOOD ORDERABLES Fin al Result Performing Organization Address [facility] Co de Phone Number [facility] [address] [place] [phone] * HIV-1/2 Antigen and Antibodies, Fourth Generation, with Reflexes (06/23/2024 10:14 AM EDT) HIV AB/AG Nonreactive Nonreactive [facility] Comment:HIV-1 p24 Ag and/or HIV-1/HIV-2 Ab not detected.A test result that is nonreactive does not exclude thepossibility of exposure to or infection with HIV-1 and/orHIV-2. Nonreactive results in this assay for individualswith prior exposure to HIV-1 and/or HIV-2 may be due toantigen and antibody levels that are below the limit ofdetection of this assay.The [employer] HIV Ag/Ab Combo assay result andsupplemental assay results should be interpreted inconjunction with the patient's clinical presentation,history and other laboratory results. If the results areinconsistent with clinical evidence, additional testing issuggested to confirm the result. Blood Venous blood specimen / Unknown 06/23/2024 10:14 AM EDT 06/23/2024 11:09 AM EDT us Tabitha Bateman MD LAB BLOOD ORDERABLES Fin al Result Performing Organization Address [facility] Co de Phone Number [facility] [address] [place] [phone] * Hemoglobin A1c (06/23/2024 10:14 AM EDT) Hemoglobin A1c 5.0 <6.0 % [facility] Comment:Hemoglobin A1C Refer ence Range Adults: 4.8 - 6.0 % Non diabetic: < 6.0 % Goal: < 7.0 %Additional Action Suggested: > 8.0 %Note: Hemoglobin A1c results are invalid for patients with abnormal amounts of HbF. Blood transfusions may impact the HbA1c concentration in the patient sample. Estimated Average Glucose 97 mg/dL [facility] Comment:eAG = Estimated ave rage glucose which is %A1C expressed asaverage glucose, using the formula of the R0H-UcjmcpkCynngll Glucose study (ADAG), Diabetes Care, Vol.31,#8,Nov. 2007 Blood Venous blood specimen / Unknown 06/23/2024 10:14 AM EDT 06/23/2024 11:09 AM EDT us Tabitha Bateman MD LAB BLOOD ORDERABLES Fin al Result [facility] [address] [place], [place] [phone] * (ABNORMAL) Comprehensive Metabolic Panel (06/23/2024 10:14 AM EDT) Sodium 139 135 - 145 mmol/L [facility] Potassium 4.3 3.3 - 5.1 mmol/L [facility] Chloride 110(H) 96 - 108 mmol/L [facility] Carbon Dioxide 22 22 - 29 mmol/L [facility] Anion Gap 11(L) 12 - 20 [facility] Urea Nitrogen (BUN) 15 9 - 16 mg/dL [facility] Creatinine, Serum 0.66 0.5 - 1.4 mg/dL [facility] Estimated Glomerular Filt Rate >60 [facility] Comment:Chronic Kidney Disea se: Estimated GFR < 60 mL/min/[id number] Kidney Disease: Estimated GFR < 15 mL/min/1.73m2 Glucose 87 60 - 115 mg/dL [facility] Calcium 8.8 8.4 - 10.2 mg/dL [facility] Bilirubin, Total 0.3 0.0 - 1.0 mg/dL [facility] Aspartate Amino Transferase 17 5 - 31 U/L [facility] Alanine Aminotransferase 20 0 - 31 U/L [facility] Total Protein 7.3 6.5 - 8.0 g/dL [facility] Albumin Level 3.6 3.5 - 5.0 g/dL [facility] Alkaline Phosphatase 111 39 - 117 U/L [facility] Blood Venous blood specimen / Unknown 06/23/2024 10:14 AM EDT 06/23/2024 11:09 AM EDT Tabitha Bateman MD LAB BLOOD ORDERABLES Fin al Result [facility] [address] [place] [phone] from Last 3 Months Insurance C3 Care Teams Manufacturing Advisor Relationship Specialty Start Date End Date Tabitha Bateman MD [address] [place] [phone] PCP - General Internal Medicine 06/23/24
== END 2024-07-13 11:37 | disposition home or self-care (01) ==
LOC: HO.HHCLNP 11:36
PROVIDERS: Visit Provider Internal Medicine
DX: R10.30 Lower abdominal pain, unspecified (principal)
CPT/HCPCS: 87086

== ENCOUNTER 2024-07-17 15:52 | Outpatient (REF) | payer MEDICAID, SELFPAY ==
--- OUTSIDE RECORDS SUMMARY | 2024-07-17 15:55 | XMS_ITS | Clinical Summary ---
Author Organization [employer] Address [address] [place] [address] 7t [place] [address] Care Team Providers Care Translator Name Role Phone Tabitha Bateman MD Primary Care Provider + Allergies Active Allergy Reactions Criticality Noted Date Comments Acetaminophen Hives High 06/16/2019 Aloe Hives 09/25/2019 Medications Levonorgestrel 20 MCG/DAY intrauterine device 1 each by Intrauterine route 1 (one) time. Active ergocalciferol (Vitamin D2) 1.25 MG (84818 UT) capsule Take 1 capsule (1.25 mg) [...] Encounters Date Type Department Care Team Description 07/15/2024 Orders Only [facility] MED & PEDS [address] [place] [address] Kiersten Beverly MD Microscopic hematuria (Primary Dx) 07/13/2024 5:40 PM EDT Office Visit [facility] [address] [place] [phone] Kiersten Beverly MD Gastroesophageal reflux disease without esophagitis (Primary Dx); Lower abdominal pain 07/13/2024 Travel 07/13/[address] [address] Tabitha Bateman MD Nurse Triage 07/10/[address] [address] Tabitha Bateman MD Durable Medical Equipment 06/30/[address] [address] Tabitha Bateman MD Durable Medical Equipment 06/23/2024 9:15 AM EDT Office Visit [address] [address] Tabitha Bateman MD Class 2 obesity due [...] Obesity, Class III, BMI 40-49.9 (morbid obesity) (CMS/FORMERLY [facility]); Dietary counseling; Exercise counseling 06/23/2024 Travel 06/19/2024 Population Health Risk Score [facility] () Department [address] [place] [phone] Provider, Population Health Generic 06/16/2024 Patient Outreach [address] [phone] Tabitha Bateman MD Pre-visit Planning ((Unable to [...] the past 12 months, has t he 25eight, gas, oil or water iLike threatened to shut off services in your [...] Info) Description 08/25/2024 11:45 AM EDT Telemedicine [facility] MEDICINE [address] [place], [place] [phone] Tabitha Bateman MD [address] [place] [address] Health Maintenance Due Date Last Done Comments Depression Screening 1993 Alcohol/Substance Use Screening 2005 Family Planning (PISQ) 2008 Hepatitis B Vaccines (1 of 3 - 19+ 3-dose series) 2012 Pneumococcal Vaccine: Pediatrics (0 to 5 Years) and At-Risk Patients (6 to 49) Years) (1 of 2 - PCV) 2012 Pap Smear 2014 Cervical Cancer Screening 10/28/2023 HPV/Cotest 10/28/2023 COVID-19 Vaccine ( - 2023-2 5 season) 2023 04/11/2021, 08/30/2020, [...] Procedure Name Priority Date/Time Associated Diagnosis Comments CULTURE, URINE, ROUTINE Routine 07/13/2024 7:26 PM EDT Lower abdominal pain POCT , URINE Routine 07/13/2024 5:51 PM [...] adult from Last 3 Months Results * Culture, Urine, Routine (07/13/2024 7:26 PM EDT) Urine Urine specimen obtained by clean catch procedure / Unknown 07/13/2024 7:26 PM EDT 07/14/2024 11:38 AM EDT Comment:[facility] - 07/15/2024 11:29 AM EDT Urine Culture No growth. Specimen Source: Urine clean catch us Kiersten Beverly MD LAB MICROBIOLOGY - GENERAL ORDERABLES Final Result [facility] [address] [place] [phone] * POCT , urine manually resulted (07/13/2024 5:51 PM EDT) Preg Test, Ur Negative Negative, Indeterminate, None Detected, Invalid, Specimen unsatisfactory for evaluation, Weakly Positive QC Media Lot # [id number] Lot# Expiration Date ,026 Urine 07/13/2024 5:51 PM EDT us Kiersten [...] Media Lot # [id number] Lot# Expiration Date ,026 Urine 07/13/2024 5:51 PM EDT us Kiersten Beverly MD POINT OF CARE TEST ENTER/ED IT ORDERABLES Final Result * Syphilis Screen (06/23/2024 10:14 AM EDT) Syphilis Screen Nonreactive Nonreactive [facility] Blood 06/23/2024 10:1 4 AM EDT 06/23/2024 11:09 AM EDT us Tabitha Bateman MD LAB BLOOD ORDERABLES Fin al Result [facility] [address] [place] [phone] * (ABNORMAL) Vitamin D, 25-Hydroxy, Total, Immunoassay (06/23/2024 10:14 AM EDT) Vitamin D 25-OH Total 13.8(L) >30 ng/mL [facility] Comment: Health Based Reference Values*< 20 ??ng/mL ??Qapvktngr06-75 ng/mL ??Insufficient> 30 ??ng/mL ??Sufficient*Linda BETHEA. N [...] MD LAB BLOOD ORDERABLES Fin al Result [facility] [address] [place] [phone] * TSH with Reflex to Free T4 (06/23/2024 10:14 AM EDT) TSH reflex Free T4 1.15 0.32 - 4.0 uIU/mL [facility] Blood 06/23/2024 10:1 4 AM EDT 06/23/2024 11:09 AM EDT Tabitha Bateman MD LAB BLOOD ORDERABLES Fin al Result Performing Organization Address [facility] de Phone Number [facility] [address] [place] [address] [phone] * (ABNORMAL) Lipid Panel with Reflex to Direct LDL (06/23/2024 10:14 AM EDT) Triglycerides 78 <150 mg/dL [facility] Comment:Desirable Triglyceri de: less than 150 mg/dLBorderline High Triglyceride 150-199 mg/dLHigh Triglyceride: 200-499 mg/dLVery High Triglyceride: greater than or equal to 5OO mg/dL Cholesterol 128 <200 mg/dL [facility] Comment:Desirable Cholestero l: less than 200 mg/dLBorderline High Cholesterol: 200-239 mg/dLHigh Cholesterol: greater than 239 mg/dL LDL Cholesterol Calculated 77 <100 mg/dL [facility] Comment:Desirable LDL: less than 100 mg/dLNear Optimal/Above Optimal LDL: 110- 129 mg/dLBorderline High LDL: 130-159 mg/dLHigh LDL: 160-189 mg/dLVery High LDL: greater than or equal to 190 mg/dL HDL Cholesterol 36(L) >40 mg/dL [facility] Comment:Desirable HDL: great er than 40 mg/dL Note: This HDL assay may give artificially low results in patients with liver disease. Blood 06/23/2024 10:1 4 AM EDT 06/23/2024 11:09 AM EDT Tabitha Bateman MD LAB BLOOD ORDERABLES Fin al Result Performing Organization Address [facility] Co de Phone Number [facility] [address] [place] [address] [phone] * Hepatitis Panel, General (06/23/2024 10:14 AM EDT) Hepatitis A IgM Nonreactive Nonreactive [facility] Comment:IgM antibodies to LEON V not detected; does not exclude earlyacute or recovered HAV infection. ~Hepatitis B Surface Antibody REACTIVE Nonreactive [facility] Comment:REACTIVE: > 11.99 mI U/mL Hepatitis B Core Antibody Nonreactive Nonreactive [facility] Hepatitis C Antibody Nonreactive Nonreactive [facility] Comment:Antibodies to HCV no t detected; does not exclude early acuteHCV infection. Hepatitis B Surface Ag Negative Negative [facility] Blood 06/23/2024 10:1 4 AM EDT 06/23/2024 11:09 AM EDT us Tabitha Bateman MD LAB BLOOD ORDERABLES Fin al Result [facility] [address] [place] [phone] * CBC auto differential (06/23/2024 10:14 AM EDT) White Blood Count 6.9 4.8 - 10.8 X10*3/uL [facility] Red Blood Count 4.67 4.20 - 5.50 X10*6/uL [facility] Hemoglobin 14.0 12.0 - 16.0 g/dl [facility] Hematocrit 40.3 37.0 - 47.0 % [facility] Mean Corpuscular Volume 86.3 80.0 - 98.0 fL [facility] Mean Corpuscular Hemoglobin 30.0 27.0 - 33.0 pg [facility] Mean Corpuscular HGB Conc 34.7 31.0 - 35.0 g/dl [facility] Red Cell Distribution Width 12.3 11.0 - 16.0 % [facility] Platelet Count 237 160 - 400 X10*3/uL [facility] Mean Platelet Volume 10.7 9.4 - 12.3 fL [facility] Neutrophils Percent Auto 55.3 45 - 73 % [facility] Imm Gran Pct Auto 0.1 0.0 - 0.4 % [facility] Lymphocytes Percent Auto 36.7 20 - 40 % [facility] Monocytes Percent Auto 5.5 2 - 11 % [facility] Eosinophils Percent Auto 1.7 0 - 4 % [facility] Basophils Percent Auto 0.7 0 - 2 % [facility] NRBC Pct Auto 0.0 0.0 - 0.2 /100WBC [facility] Neutrophils Absolute Auto 3.8 2.0 - 8.3 x10*3/uL [facility] Imm Gran Abs Auto 0.01 0.00 - 0.03 X10*3/uL [facility] Lymphocytes Absolute Auto 2.5 1.2 - 4.9 X10*3/uL [facility] Monocytes Absolute Auto 0.4 0.1 - 1.2 X10*3/uL [facility] Eosinophils Absolute Auto 0.1 0.0 - 0.4 X10*3/uL [facility] Basophils Absolute Auto 0.1 0.0 - 0.2 X10*3/uL [facility] NRBC Abs Auto 0.000 0.0 - 0.012 X10*3/uL [facility] Blood Venous blood specimen / Unknown 06/23/2024 10:14 AM EDT 06/23/2024 11:09 AM EDT us Tabitha Bateman MD LAB BLOOD ORDERABLES Fin al Result [facility] [address] [place] [phone] * HIV-1/2 Antigen and Antibodies, Fourth Generation, with Reflexes (06/23/2024 10:14 AM EDT) HIV AB/AG Nonreactive Nonreactive [facility] Comment:HIV-1 p24 Ag and/or HIV-1/HIV-2 Ab not detected.A test result that is nonreactive does not exclude thepossibility of exposure to or infection with HIV-1 and/orHIV-2. Nonreactive results in this assay for individualswith prior exposure to HIV-1 and/or HIV-2 may be due toantigen and antibody levels that are below the limit ofdetection of this assay.The [employer]atix HIV Ag/Ab Combo assay result andsupplemental assay results should be interpreted inconjunction with the patient's clinical presentation,history and other laboratory results. If the results areinconsistent with clinical evidence, additional testing issuggested to confirm the result. Blood Venous blood specimen / Unknown 06/23/2024 10:14 AM EDT 06/23/2024 11:09 AM EDT Tabitha Bateman MD LAB BLOOD ORDERABLES Fin al Result Performing Organization Address [facility]/ZIP Co de Phone Number [facility] [address] [place] [address] [phone] * Hemoglobin A1c (06/23/2024 10:14 AM EDT) Hemoglobin A1c 5.0 <6.0 % [facility] Comment:Hemoglobin A1C Refer ence Range Adults: 4.8 - 6.0 % Non diabetic: < 6.0 % Goal: < 7.0 %Additional Action Suggested: > 8.0 %Note: Hemoglobin A1c results are invalid for patients with abnormal amounts of HbF. Blood transfusions may impact the HbA1c concentration in the patient sample. Estimated Average Glucose 97 mg/dL [facility] Comment:eAG = Estimated ave rage glucose which is %A1C expressed asaverage glucose, using the formula of the [id number] Glucose study (ADAG), Diabetes Care, Vol.31,#8,Nov. 2007 Blood Venous blood specimen / Unknown 06/23/2024 10:14 AM EDT 06/23/2024 11:09 AM EDT us Tabitha Bateman MD LAB BLOOD ORDERABLES Fin al Result Performing Organization Address [facility]/ZIP Co de Phone Number [facility] [address] [place] [address] [phone] * (ABNORMAL) Comprehensive Metabolic Panel (06/23/2024 10:14 AM EDT) Sodium 139 135 - 145 mmol/L [facility] Potassium 4.3 3.3 - 5.1 mmol/L [facility] Chloride 110(H) 96 - 108 mmol/L [facility] Carbon Dioxide 22 22 - 29 mmol/L [facility] Anion Gap 11(L) 12 - 20 [facility] Urea Nitrogen (BUN) 15 9 - 16 mg/dL [facility] Creatinine, Serum 0.66 0.5 - 1.4 mg/dL [facility] Estimated Glomerular Filt Rate >60 [facility] Comment:Chronic Kidney Disea se: Estimated GFR < 60 mL/min/1.79a7Zaokdl Kidney Disease: Estimated GFR < 15 mL/min/1.73m2 Glucose 87 60 - 115 mg/dL [facility] Calcium 8.8 8.4 - 10.2 mg/dL [facility] Bilirubin, Total 0.3 0.0 - 1.0 mg/dL [facility] Aspartate Amino Transferase 17 5 - 31 U/L [facility] Alanine Aminotransferase 20 0 - 31 U/L [facility] Total Protein 7.3 6.5 - 8.0 g/dL [facility] Albumin Level 3.6 3.5 - 5.0 g/dL [facility] Alkaline Phosphatase 111 39 - 117 U/L [facility] Blood Venous blood specimen / Unknown 06/23/2024 10:14 AM EDT 06/23/2024 11:09 AM EDT us Tabitha Bateman MD LAB BLOOD ORDERABLES Fin al Result Performing Organization Address [facility]/State/ZIP Co de Phone Number [facility] [address] [place] [address] [phone] from Last 3 Months Insurance [facility] C3 Care Teams Translator Relationship Specialty Start Date End Date Tabitha Bateman MD [address] [place] [phone] PCP - General Internal Medicine 06/23/24
--- OUTSIDE RECORDS SUMMARY | 2024-07-17 15:56 | XMS_ITS | Encounter Summary ---
Author Organization [employer] Address [address] [place] [address] 7t [place] [address] Care Team Providers Care Sourcing Coordinator Name Role Phone Tabitha Bateman MD Primary Care Provider + Reason for Visit * Reason Onset Date Comments Nurse Triage 07/13/2024 Encounter Details Date Type Department Care Team (Late st Contact Info) Description 07/13/2024 Telephone [facility] MEDICINE [address] [place] [address] Tabitha Bateman MD [address] [place], [place] [phone] Nurse Triage Social History Tobacco Use Types [...] outcome. Pt reported spotting Contact pt at [phone] documented in this encounter Plan of Treatment Upcoming Encounters Date Type Department Care Team ([facility] st Contact Info) Description 08/25/2024 11:45 AM EDT Telemedicine [facility] MEDICINE [address] [place] [address] [phone] Tabitha Bateman MD [address] [place] [phone] documented as of this encounter Visit Diagnoses Not on filedocumented in this encounter Care Teams Sourcing Coordinator Relationship Specialty Start Date End Date Tabitha Bateman MD [address] [place] [address] [phone] PCP - General Internal Medicine 06/23/24 documented as of this encounter
--- OUTSIDE RECORDS SUMMARY | 2024-07-17 15:56 | XMS_ITS | Encounter Summary ---
Author Organization [employer] Address [address] [place] [address] 7t [place] [address] Care Team Providers Care Hatchery Attendant Name Role Phone Tabitha Bateman MD Primary Care Provider + Reason for Referral * Imaging (Routine) - Authorized Specialty Diagnoses / Procedures Referred By Moe del castillo Referred To Contact Radiology Diagnoses Lower abdominal pain Procedures Us Pelvis complete Kiersten Beverly MD [address] [place] [address] Phone: tel: fax: [address] Phone: tel: fax: Referral ID Status Reason Start Date Expiration Date V isits Requested Visits Authorized [id number] Authorized 07/13/2024 07/13/2025 1 1 Reason for Visit * Reason Comments Abdominal Pain Encounter Details Date Type Department Care Team (Latest Contact Info) Description 07/13/2024 5:40 PM EDT Office Visit [facility] [address] [place] [phone] Kiersten Beverly MD [address] [place], [place] [phone] Gastroesophageal reflux disease without esophagitis (Primary Dx); [...] Dispense Refill ergocalciferol (Vitamin D2) 1.25 MG (53878 UT) capsule Take 1 capsule (1.25 mg) [...] Pelvis complete; Future documented in this encounter Miscellaneous Notes * Result Encounter Note - Kiersten Beverly MD - 07/13/2024 5:40 PM EDT Please call. The urinalysis shows microscopic hematuria. The urine culture is negative. I recommendrepeat UA. If the UA still shows the hematuria I will consider an ultrasound of the kidneys. documented in this encounter Plan of Treatment Upcoming Encounters Date Type Department Care Team (Late st Contact Info) Description 08/25/2024 11:[address] [facility] MEDICINE [address] [place], [place] [phone] Tabitha Bateman MD [address] [place] [address] Scheduled Orders Name Type Priority Associated Diagnoses Orde r Schedule Us Pelvis complete Imaging Routine Lower abdominal [...] pain documented in this encounter Results * Culture, Urine, Routine (07/13/2024 7:26 PM EDT) Urine Urine specimen obtained by clean catch procedure / Unknown 07/13/2024 7:26 PM EDT 07/14/2024 11:38 AM EDT Comment:[facility] - 07/15/2024 11:29 AM EDT Urine Culture No growth. Specimen Source: Urine clean catch Kiersten Beverly MD LAB MICROBIOLOGY - GENERAL ORDERABLES Final Result [facility] [address] [place] [address] [phone] * POCT , urine manually resulted (07/13/2024 5:51 PM EDT) Preg Test, Ur Negative Negative, Indeterminate, None Detected, Invalid, Specimen unsatisfactory for evaluation, Weakly Positive QC Media Lot # [id number] Lot# Expiration Date [id number] Urine 07/13/2024 5:51 PM EDT us Kiersten [...] Media Lot # [id number] Lot# Expiration Date [id number] Urine 07/13/2024 5:51 PM EDT us Kiersten Beverly MD POINT OF CARE TEST ENTER/ED IT ORDERABLES Final Result documented in this encounter Visit Diagnoses Diagnosis Gastroesophageal reflux disease without esophagitis- Primary Esophageal reflux Lower abdominal pain Abdominal pain, other specified site documented in this encounter Care Teams Hatchery Attendant Relationship Specialty Start Date End Date Tabitha Bateman MD [address] [place] [phone] PCP - General Internal Medicine 06/23/24 documented as of this encounter
--- OUTSIDE RECORDS SUMMARY | 2024-07-17 15:56 | XMS_ITS | Encounter Summary ---
Author Organization [employer] Address [address] [place] [address] 7t [place] [address] Care Team Providers Care Telecommunications Sales Representative Name Role Phone Tabitha Bateman MD Primary Care Provider + Encounter Details Date Type Department Care Team ([facility] st Contact Info) Description 07/15/2024 Orders Only [facility]S [address] [place], [place] [phone] Kiersten Beverly MD [address] [place] [address] Microscopic hematuria (Primary Dx) Social History Tobacco Use Types Packs/Day Years [...] Info) Description 08/25/2024 11:45 AM EDT Telemedicine [facility] MEDICINE [address] [place] [address] [phone] Tabitha Bateman MD [address] [place] [address] [phone] Scheduled Orders Name Type Priority Associated Diagnoses Orde r Schedule Urinalysis, Complete, with Reflex to Culture Lab Routine Microscopic hematuria Expected: 07/15/2024 (Approximate), Expires: 07/15/2025 documented as of this encounter Visit Diagnoses Diagnosis Microscopic hematuria- Primary documented in this encounter Care Teams Telecommunications Sales Representative Relationship Specialty Start Date End Date Tabitha Bateman MD [address] [place] [address] [phone] PCP - General Internal Medicine 06/23/24 documented as of this encounter
--- OUTSIDE RECORDS SUMMARY | 2024-07-17 15:56 | XMS_ITS | Clinical Summary ---
Author Organization [facility] Address [address] [place] [address] Care Team Providers Care Broker In Charge Name Role Phone Audrey Magallon MD Primary [...] Advance Directives For more information, please contact: [phone] Latest Code Status on File Code Status Date Activated Date Inactivated Comments Full Code 01/22/2020 2:46 PM 01/25/2020 10:10 PM Th is code status was ascertained in the following way: discussion with patient . Care Teams Broker In Charge Relationship Specialty Start Date End Date Audrey Magallon MD PCP - General Internal Medicine 05/09/21
--- OUTSIDE RECORDS SUMMARY | 2024-07-17 15:56 | XMS_ITS | Encounter Summary ---
Author Organization [employer] Address [address] [facility] 7t [place] [address] Care Team Providers Care Senior Analyst Market Intelligence Name Role Phone Tabitha Bateman MD Primary [...] 08/25/2024 11:45 AM EDT Telemedicine [facility] MEDICINE [address] [place], [place] [phone] Tabitha Bateman MD [address] [place] [phone] documented as of this encounter Visit Diagnoses Not on filedocumented in this encounter Care Teams Senior Analyst Market Intelligence Relationship Specialty Start Date End Date Tabitha Bateman MD [address] [place] [address] [phone] PCP - General Internal Medicine 06/23/24 documented as of this encounter
[2024-07-17 17:55] LABS: Appearance Urine Clear; Color Urine Yellow; Glucose Urine UA Negative (Negative); Leukocyte Esterase Urine Negative (Negative); Nitrite Urine Negative (Negative); Urine Blood Negative (Negative); Urine Ketones Negative (Negative); Urine Protein Negative (Neg-Trace)
[2024-07-17 18:01] LABS: Bacteria Urine None Seen (None Seen); Hyaline Casts Urine 0-2 /LPF (0-2); RBC Urine 0-2 /HPF (0-2); WBC Urine 0-5 /HPF (0-5)
== END 2024-07-17 15:53 | disposition home or self-care (01) ==
LOC: HO.HHCL 15:52
PROVIDERS: Visit Provider Internal Medicine
DX: R31.29 Other microscopic hematuria (principal)
CPT/HCPCS: 81001

== ENCOUNTER → 2024-09-07 15:45 | Outpatient (BNV) | payer MEDICAID, SELFPAY | PROVIDERS: PCP Internal Medicine; Visit Provider Internal Medicine | DX: Z12.31 Encounter for screening mammogram for malignant neoplasm of breast (principal) | CPT/HCPCS: 77063; 77067 ==

== ENCOUNTER 2024-09-07 15:53 | Outpatient (REF) | payer MEDICAID, SELFPAY ==
--- NOTE | ~2024-09-07 | MM_ITS ---
EXAMINATION: MM SCREENING DIGITAL BREAST TOMOSYNTHESIS, BILATERAL CLINICAL INFORMATION: Screening. Asymptomatic. COMPARISON: Mammography: Baseline. TECHNIQUE: Digital breast mammography with tomosynthesis is performed in both the craniocaudal and mediolateral oblique views along with computer-aided detection (CAD). FINDINGS: There are scattered areas of fibroglandular density (ACR BI-RADS breast composition Category b). There are no significant masses, abnormal calcifications, or other abnormalities. MM/MM tomosynthesis screening BI IMPRESSION: No mammographic evidence of malignancy. Patient has a strong family history of breast cancer including mother premenopausal breast cancer age 29 maternal grandmother at age 32. Recommend yearly breast MRI screening surveillance. Breast MRI would need to be ordered by the patient's providing clinician. ASSESSMENT: BI-RADS BI-RADS 1 - Negative RECOMMENDATION: Routine annual mammography screening. 1 year F/U This examination should not preclude the clinical evaluation of a suspicious palpable abnormality. This patient's information was entered into a reminder system with a target due date for their next mammogram. Electronically signed by: Jess Carr DO 09/07/2024 04:26 PM EDT
--- OUTSIDE RECORDS SUMMARY | 2024-09-07 16:56 | XMS_ITS | Clinical Summary ---
Author Organization [facility] Address [address] [place] [address] Phone Care Team Providers Care Manager Linux Name Role Phone Audrey Magallon MD Primary [...] HPV cervical 06/25 Overview (06/03/2024): Neg 16,18,45 Encounters Date Type Department Care Team Description 07/24/2024 1:04 PM EDT - 07/24/2024 11:59 PM EDT Hospital Encounter [facility] Ultrasound [address] [place] [address] Lower abdominal pain, unspecified Discharge Disposition: Home or Self Care from Last 3 Months Immunizations Name Administration [...] Value Date Recorded Sex Assigned at Female 07/14/2024 3:56 PM EDT Legal Sex Female 3:20 AM EST Gender Identity Female 07/14/2024 3:56 PM EDT Sexual Orientation Straight 07/14/2024 3: 56 PM EDT Obstetrics History Last Filed Vital Signs Vital [...] and At-Risk Patients (6 to 64 Years) (1 of 2 - PCV) 2012 Depression Screening 03/11/2022 Social Influencers of Health Screening 03/11/2022 COVID-19 Vaccine ( season) 2023 04/11/2021, 08/30/2020, 08/04/2020 Cervical Cancer Screening: HPV 03/25/2025 03/25/2020 Hypertension/CHF/CAD Annual BMP Blood Test 06/23/2025 06/23/2024, 06/08/2021, 06/08/2021, Additional history exists Cholesterol Screening (Lipid Panel) 06/08/2026 06/08/2021, 06/08/2021 DTaP,Tdap,and Td Vaccines (2 - Td or Tdap) 03/16/2034 03/16/2024 Hepatitis C Screening Completed 06/30/2019 MMR Vaccines Aged Out 01/25/2020 No longer eligi ble based on patient's age to complete this topic Influenza Vaccine Completed 03/16/2024, 01/05/2020 HIV Screening Completed 06/23/2024, 10/26/2019 HIB Vaccines Aged Out No longer eligi [...] Procedure Name Priority Date/Time Associated Diagnosis Comments US PELVIS NON OB COMPLETE Routine 07/24/2024 2:00 PM EDT Lower abdominal pain, unspecified ANNUAL BMP BLOOD TEST Routine 06/08/2021 LIPID PANEL Routine 06/08/2021 HPV Routine 03/25/2020 HIV SCREENING Routine 10/26/2019 HEPATITIS C SCREENING Routine 06/30/2019 from Last 3 Months or Most Recently Relevant to Health Maintenance Results * US Pelvis Non OB Complete (07/24/2024 2:00 PM EDT) Anatomical Region Laterality Modality Body, Pelvis Ultrasound 07/24/2024 3:29 PM EDT Impressions 07/24/2024 4:06 PM EDT Limited study secondary to patient habitus, with only transabdominal imaging requested and performed. ??Intrauterine device in the endometrial cavity. ??Neither ovary visualized. -------- FINAL REPORT -------- Dictated By: Negro Harris Dictated Date: 07/24/2024 15:29 ET Assigned Physician: Negro Harris Reviewed and Electronically Signed By: Negro Harris Signed Date: 07/24/2024 16:06 ET Workstation ID: [id number] Transcribed By: Self Edit Transcribed Date: 07/24/2024 15:29 ET Narrative 07/24/2024 4:06 PM EDT Procedure: Ultrasound of the pelvis. HISTORY: lower abdominal pain. TECHNIQUE: Transabdominal grayscale, color Doppler, and spectral Doppler ultrasound evaluation of the pelvis. COMPARISON: None. FINDINGS: Only transabdominal imaging requested and performed. Retroflexed uterus measuring 7.1 x 4.0 x 4.9 cm. ??The endometrial stripe could not be visualized. ??Partially visible intrauterine device in the endometrial cavity. Neither ovary was visualized. ??No visible free fluid in the pelvis. Procedure Note Negro Harris MD - 07/24/2024 Procedure: Ultrasound of the pelvis. HISTORY: lower abdominal pain. TECHNIQUE: Transabdominal grayscale, color Doppler, and spectral Dopplerultrasound evaluation of the pelvis. COMPARISON: None. FINDINGS: Only transabdominal imaging requested and performed. Retroflexed uterus measuring 7.1 x 4.0 x 4.9 cm. The endometrial stripecould not be visualized. Partially visible intrauterine device in theendometrial cavity. Neither ovary was visualized. No visible free fluid in the pelvis. IMPRESSION: Limited study secondary to patient habitus, with only transabdominalimaging requested and performed. Intrauterine device in the endometrialcavity. Neither ovary visualized. -------- FINAL REPORT -------- Dictated By: Negro Harris Dictated Date: 07/24/2024 15:29 ET Assigned Physician: Negro Harris Reviewed and Electronically Signed By: Negro Harris Signed Date: 07/24/2024 16:06 ET Workstation ID: [id number] Transcribed By: Self Edit Transcribed Date: 07/24/2024 15:29 ET Kiersten Beverly MD [facility] US PROCEDURES Final R esult * Annual BMP Blood Test (06/08/2021) [facility] Annual [facility] Blood Test Abstracted Historical Provider HEALTH MAINTENANCE Final Result * (ABNORMAL) Lipid panel (06/08/2021) [facility] Triglycerides 208(A) <=150 mg/dL Cholesterol 123 0 - 200 mg/dL HDL 28(A) 35 - 80 mg/dL LDL Cholesterol 53 50 - 130 mg/dL Blood Venous blood specimen / Unknown [facility] Provider LAB BLOOD ORDERABLES Purvi l Result * Cervical Cancer Screening: HPV (03/25/2020) Pathologist [facility] Cervical Cancer Screening: HPV Negative, Abstracted [facility] Provider HEALTH MAINTENANCE Final Result * HIV Screening (10/26/2019) Pathologist [facility] HIV Screening Abstracted [facility] Provider HEALTH MAINTENANCE Final Result * Hepatitis C Screening (06/30/2019) [facility] Hepatitis C Screening Abstracted [facility] Provider HEALTH MAINTENANCE Final Result from Last 3 Months or Most Recently Relevant to Health Maintenance Insurance [place]ICA[place] - [place] Care Teams Manager Linux Relationship Specialty Start Date End Date Audrey Magallon MD [address] [place] [address] PCP - General Internal Medicine 05/09/21
== END 2024-09-07 15:54 | disposition home or self-care (01) ==
LOC: HO.MAMMO 15:53
PROVIDERS: PCP Internal Medicine; Visit Provider Internal Medicine
DX: Z12.31 Encounter for screening mammogram for malignant neoplasm of breast (principal); Z80.3 Family history of malignant neoplasm of breast
CPT/HCPCS: 77063; 77067